=== PATIENT | female | born 1940 | race Caucasian/White ===

== ENCOUNTER 2017-02-15 13:26 | Emergency (ER) | payer OTHER ==
[~2017-02-15] VITALS: Ht 175.3 cm; Wt 69.7 kg
[~2017-02-15 13:26] MED LIST: GABA300C10 PO; GLIM4TAB2 PO; METH750T87 PO; OMEP-110 PO; OXYC-302 PO; will bring list
[2017-02-15 13:28] VITALS: BP 137/83
[2017-02-15] MEDS ORDERED: FAMOTIDINE 20 MG TABLET ONE (14:20)
[2017-02-15] MEDS ORDERED: DIPHENHYDRAMINE 25 MG CAPSULE ONE (14:20)
[2017-02-15] MEDS ORDERED: FAMOTIDINE 20 MG TABLET PO ONE (14:30)
[2017-02-15] MEDS ORDERED: DIPHENHYDRAMINE 25 MG CAPSULE PO ONE (14:30)
== END 2017-02-15 14:31 | disposition home or self-care (01) ==
LOC: ED 14:25
DX: B35.0 Tinea barbae and tinea capitis (principal); B35.4 Tinea corporis; E11.9 Type 2 diabetes mellitus without complications
CPT/HCPCS: 99283; Q0163

== ENCOUNTER 2018-10-05 05:19 | Observation (INO) | payer MEDICARE, OTHER ==
[~2018-10-05] VITALS: Ht 149.9 cm; Wt 65.0 kg
[~2018-10-05 05:19] MED LIST changes: +AMOX1TAB64 PO; +INSU100I18 SQ-INSULIN; +INSU100I28 SQ-INSULIN
--- NOTE | 2018-10-05 05:58 | NUR ---
SUMMARY NOTE: PT. TO ED WITH FEVER X 1.5 DAYS. PT. DENIES ANY COMPLAINTS. PT. REPORTS "MY CALLED BECAUSE I WAS HOT". PT. DENIES COUGH, DYSUIRA, RECENT ILLNESS, OR ANY OTHER COMPLTAINTS. DOES REPORT WAS SEEN AT [facility] ABOUT 2 WEEKS AGO BECAUSE SHE WAS UNABLE TO VOID AND HAD A CATHETER IN PLACE. STATES HAS HAD NO PROBLEMS WITH URINATION SINCE THEN HOWEVER. PT. RECEIVED 1000MG TYLENOL AND 1L NS EN ROUTE. 2ND LITER INITIATED PER ORDER. PT. HAD VERY LARGE INCONTINENT BM ON ARRIVAL(SOLID STOOL); PT. WAS THOROUGHLY CLEANSED AND THEN A STRAIGHT CATH WAS COMPLETED PER MD ORDER. PT. TOLERATED WELL. SKIN PWD; NO WOUNDS. URINE SAMPLE WALKED TO LAB. TO BS AT THIS TIME. CONTINUOUS PULSE OX AND B/P MONITORS IN PLACE. PERIPHRIAL PULSES STRONG AND EQUAL. EKG WAS DONE ON ARRIVAL. PT. PROVIDED WITH WATER AFTER OK FROM MD. AWARE OF PLAN FOR LABS/BLOOD CULTURES/AND CHEST X-RAY. DENIES OTHER NEEDS. CALL LIGHT IN REACH. ALL SAFETY MEASURES OBSERVED.
[2018-10-05] MEDS ORDERED: SODIUM CHLORIDE 0.9% 1,000ML IVBOLUS ONE (06:00)
[2018-10-05] MEDS ORDERED: METF500T17 PO (06:11)
[2018-10-05] MEDS ORDERED: SITA25TA PO (06:11)
[2018-10-05 06:23] LABS: MICROSCOPIC INDICATED
[2018-10-05 06:25] LABS: CULTURE INDICATED? YES
[2018-10-05 06:29] LABS: BASOPHILS # (AUTO) 0.01 x10^3/uL (0-0.1); BASOPHILS % (AUTO) 0 % (0-1); EOSINOPHILS % (AUTO) 0 % (1-7); LYMPHOCYTES # (AUTO) 0.33 x10^3/uL (1-3.4); LYMPHOCYTES % (AUTO) 4 % (22-44); MD NO; MEAN CORPUSCULAR HEMOGLOBIN 31.3 pg (27.0-34.8); MEAN CORPUSCULAR HGB CONC 34.2 g/dL (32.4-35.8); MEAN CORPUSCULAR VOLUME 91.5 fL (80-100); MEAN PLATELET VOLUME 7.5 fL (7.4-10.4); MONOCYTES # (AUTO) 0.64 x10^3/uL (0.2-0.8); MONOCYTES % (AUTO) 7 % (2-9); NEUTROPHILS # (AUTO) 8.17 x10^3/uL (1.8-6.8); NEUTROPHILS % (AUTO) 89 % (42-75); PLATELET COUNT 310 x10^3/uL (130-400); RED BLOOD COUNT 3.13 x10^6/uL (3.82-5.3); RED CELL DISTRIBUTION WIDTH 12.9 % (9.6-15.2)
[2018-10-05 06:38] LABS: ALANINE AMINOTRANSFERASE 9 U/L (12-78); ALBUMIN 2.4 g/dL (3.4-5.0); ANION GAP 9 mmol/L (5-15); CALCIUM 7.3 mg/dL (8.5-10.1); CHLORIDE 107 mmol/L (98-107)
[2018-10-05 06:40] LABS: ALKALINE PHOSPHATASE 59 U/L (45-117); BILIRUBIN,TOTAL 0.6 mg/dL (0.2-1.0); TOTAL PROTEIN 6.1 g/dL (6.4-8.2)
--- NOTE | 2018-10-05 06:44 | NUR ---
PT. RESTING ON GURNEY WITH NORYN. VS UPDATED. TEMP MUCH IMPROVED. PT. DENIES NEEDS. REMAINS AT BS FOR SUPPORT. CALL LIGHT IN REACH.
[2018-10-05] MEDS ORDERED: CEFTRIAXONE PMX 1GM/50ML 50 ML ONE (06:52)
--- NOTE | 2018-10-05 06:57 | NUR ---
BS REPORT TO TIFFANI FLORES TO ASSUME PT. CARE. IV ABX INFUISNG PER MD ORDER. BLOOD CULTURES WERE DRAWN PRIOR.
[2018-10-05] MEDS ORDERED: CEFTRIAXONE PMX 1GM/50ML 50 ML IV ONE (07:00)
--- NOTE | 2018-10-05 07:05 | NUR ---
REPORT FROM TIFFANI STYLES. PT RESTING COMFORTABELY IN [facility].
[2018-10-05] MEDS ORDERED: POTASSIUM CHLORIDE 20 MEQ TAB.ER.PRT PO ONE (07:30)
[2018-10-05] MEDS ORDERED: MAGNESIUM SULFATE PMX 2GM/50ML 50 ML IV ONE (07:30)
--- NOTE | 2018-10-05 07:36 | NUR ---
Mandie parks in [facility] - 10/05/18 at 0758 by AJ U/S AT BEDSIDE.
--- NOTE | 2018-10-05 07:57 | NUR ---
Mandie parks in ED - 10/05/18 at 0758 by AJ IVF AND IV ABX STARTED. PT RESTING COMFORTABELY IN [facility].
--- NOTE | 2018-10-05 08:00 | NUR ---
PT RESTING IN [facility]. NAD NOTED AT THIS. BREATHING REGULAR AND UNLABORED. AWAITING ROOM ASSIGNMENT AT THIS TIME.
--- NOTE | 2018-10-05 09:03 | NUR ---
REPORT TO TIFFANI MACK. PT ALREADY TO FLOOR.
[2018-10-05 09:07] VITALS: BP 95/60
[2018-10-05 12:26] VITALS: BP 123/71
[2018-10-05] MEDS: INSULIN REGULAR 100 UNITS/ML, 3ML VIAL SQ-INSULIN SCH ×2 (13:53→16:00)
[2018-10-05] MEDS ORDERED: DOCUSATE 100 MG CAPSULE PO PRN (16:00)
[2018-10-05] MEDS: HEPARIN 5,000 UNITS/ML, 1ML SQ SCH (16:00)
[2018-10-05] MEDS ORDERED: LABETALOL 5MG/ML, 20ML IVPush PRN (16:00)
[2018-10-05] MEDS ORDERED: ONDANSETRON 2MG/ML, 2ML IVPush PRN (16:00)
[2018-10-05] MEDS ORDERED: hydrALAzine 20 MG/ML, 1ML IVPush PRN (16:00)
[2018-10-05] MEDS ORDERED: ONDANSETRON ODT 4 MG PO PRN (16:00)
[2018-10-05] MEDS ORDERED: BISACODYL 10 MG SUPP PR PRN (16:00)
[2018-10-05] MEDS ORDERED: [UNRECOGNIZED DRUG - OTHER] MC SCH (16:00)
[2018-10-05] MEDS ORDERED: LIDODERM 5% PATCH TD PRN (16:00)
[2018-10-05] MEDS ORDERED: POLYETHYLENE GLYCOL 17 GM PACKET PO PRN (16:00)
[2018-10-05] MEDS ORDERED: ZOLPIDEM 5MG TABLET PO PRN (16:00)
[2018-10-05] MEDS: INSULIN LISPRO 100 UNITS/ML, PEN SQ-INSULIN SCH ×2 (16:00→23:58)
[2018-10-05] MEDS: LACTATED RINGERS 1,000 ML IV SCH (16:11)
[2018-10-05] MEDS: ACETAMINOPHEN 325 MG TABLET PO PRN (16:13)
[2018-10-05 16:39] LABS: HEMOGLOBIN A1C 11.7 % (4.2-6.3)
[2018-10-05 17:06] LABS: FREE T4 (FREE THYROXINE) 1.55 ng/dL (0.76-1.46); THYROID STIMULATING HORMONE 0.192 mIU/L (0.358-3.740)
[2018-10-05 19:45] VITALS: BP 99/57
[2018-10-06] MEDS: HEPARIN 5,000 UNITS/ML, 1ML SQ SCH ×4 (00:01→20:35)
[2018-10-06 00:16] LABS: CULTURE INDICATED? YES; MICROSCOPIC INDICATED
[2018-10-06 01:37] VITALS: BP 106/54
[2018-10-06] MEDS: LACTATED RINGERS 1,000 ML IV SCH ×3 (01:59→20:37)
[2018-10-06] MEDS: ACETAMINOPHEN 325 MG TABLET PO PRN ×3 (01:59→20:31)
[2018-10-06 05:36] LABS: ANION GAP 7 mmol/L (5-15); CALCIUM 7.8 mg/dL (8.5-10.1); CHLORIDE 107 mmol/L (98-107)
[2018-10-06 05:37] LABS: BASOPHILS # (AUTO) 0.01 x10^3/uL (0-0.1); BASOPHILS % (AUTO) 0 % (0-1); EOSINOPHILS # (AUTO) 0.01 x10^3/uL (0-0.4); EOSINOPHILS % (AUTO) 0 % (1-7); LYMPHOCYTES % (AUTO) 16 % (22-44); MD NO; MEAN CORPUSCULAR HEMOGLOBIN 30.4 pg (27.0-34.8); MEAN CORPUSCULAR HGB CONC 33.3 g/dL (32.4-35.8); MEAN CORPUSCULAR VOLUME 91.4 fL (80-100); MEAN PLATELET VOLUME 8.1 fL (7.4-10.4); MONOCYTES # (AUTO) 1.02 x10^3/uL (0.2-0.8); MONOCYTES % (AUTO) 12 % (2-9); NEUTROPHILS # (AUTO) 6.04 x10^3/uL (1.8-6.8); NEUTROPHILS % (AUTO) 72 % (42-75); PLATELET COUNT 344 x10^3/uL (130-400); RED BLOOD COUNT 3.39 x10^6/uL (3.82-5.3); RED CELL DISTRIBUTION WIDTH 13.3 % (9.6-15.2)
[2018-10-06 05:41] LABS: CHOL/HDL RATIO 6.4; CHOLESTEROL, TOTAL 153 mg/dL (140-239); CREATININE 0.68 mg/dL (0.55-1.02); HDL CHOL % 16 % (28-40); HDL CHOLESTEROL (DIRECT) 24 mg/dL (40-60); LDL CHOLESTEROL,CALCULATED 100 mg/dL (54-169); LDL/HDL RATIO 4.2 (0.5-3.0); TRIGLYCERIDES 146 mg/dL (50-200); VLDL CHOLESTEROL 29 mg/dL (0-25)
[2018-10-06] MEDS: INSULIN LISPRO 100 UNITS/ML, PEN SQ-INSULIN SCH ×4 (07:00→20:34)
[2018-10-06 07:52] VITALS: BP 111/64
[2018-10-06] MEDS: PANTOPROZOLE 40MG TABLET PO SCH (09:34)
[2018-10-06 13:47] VITALS: BP 96/59
[2018-10-06] MEDS ORDERED: CEFTRIAXONE PMX 2GM/50ML 50 ML IV SCH (19:30)
[2018-10-06 19:52] VITALS: BP 143/86
[2018-10-07 02:13] VITALS: BP 123/69
[2018-10-07] MEDS ORDERED: DIPHENHYDRAMINE 25 MG CAPSULE PO ONE ×2 (02:30→10:00)
[2018-10-07] MEDS: INSULIN LISPRO 100 UNITS/ML, PEN SQ-INSULIN SCH ×2 (07:00→12:38)
[2018-10-07] MEDS: LACTATED RINGERS 1,000 ML IV SCH (08:00)
[2018-10-07] MEDS: HEPARIN 5,000 UNITS/ML, 1ML SQ SCH (08:00)
[2018-10-07] MEDS: PANTOPROZOLE 40MG TABLET PO SCH (08:29)
[2018-10-07] MEDS ORDERED: LEVOFLOXACIN 500 MG TABLET PO SCH (09:00)
[2018-10-07 09:51] VITALS: BP 129/73
[2018-10-07] MEDS ORDERED: DIPHENHYDRAMINE 25 MG CAPSULE ONE (10:05)
[2018-10-07] MEDS ORDERED: SULFAMETH./TRIMETHOPRIM DS 800MG/160MG TABLET PO SCH (10:30)
[2018-10-07] MEDS ORDERED: SULF-169 PO (11:57)
[2018-10-07] MEDS ORDERED: POTA20TA6 PO (13:50)
== END 2018-10-07 15:36 | disposition home or self-care (01) ==
LOC: ED 06:59 → EDIP 07:23 → INTOOBSV 07:23 → 3NE 08:48 → DCLOUNGE 10-07 15:15
PROVIDERS: ADMIT Hospitalist; ATTEND Hospitalist
DX: N39.0 Urinary tract infection, site not specified (principal); E11.65 Type 2 diabetes mellitus with hyperglycemia; E43 Unspecified severe protein-calorie malnutrition; E78.5 Hyperlipidemia, unspecified; E83.42 Hypomagnesemia; E83.51 Hypocalcemia; E87.6 Hypokalemia; Z86.718 Personal history of other venous thrombosis and embolism; Z90.710 Acquired absence of both cervix and uterus; Z88.0 Allergy status to penicillin; Z88.5 Allergy status to narcotic agent; Z88.8 Allergy status to other drugs, medicaments and biological substances; Z68.28 Body mass index [BMI] 28.0-28.9, adult; Z79.84 Long term (current) use of oral hypoglycemic drugs
CPT/HCPCS: 36415; 71045; 80048; 80053; 80061; 81001; 82962; 83036; 83605; 83735; 84439; 84443; 85025; 87040; 87077; 87086; 87186; 93005; 96361; 96365; 96366; 96372; 97163; 99285; G0378; J0696; J1644; J1815; J7030; J7120; Q0163; 96374

== ENCOUNTER 2019-01-16 20:18 | Inpatient (IN) | payer MEDICARE ==
[~2019-01-16] VITALS: Ht 142.2 cm; Wt 59.6 kg
[~2019-01-16 20:18] MED LIST changes: +METF500T17 PO; +POTA20TA6 PO; +SITA25TA PO; +SULF-169 PO
--- NOTE | 2019-01-16 20:45 | NUR ---
PT PRESENTING TO ER FOR SOB SINEC APPROX 0230 THIS AM, NORMALLY HAS TO SLEEP ELEVATED AT NIGHT BUT DIDNT LAST NIGHT. BILATER LEG SWELLING NOTED. YEARS AGO HAS SENT PLACED IN LEG FOR CLOT, NOT CURRENTLY ON BLOOD THINNER. ROCAEL, PT ABLE TO SPEAK IN FULL SENTENCES. CONNECTED TO ALL MONITORING, VSS, RHYTHM IRREGULAR. FAMILY AT BEDSIDE. CALL LIGHT WITHIN REACH. ORDERS RECEIVED. LAB AT BEDSIDE.
[2019-01-16] MEDS ORDERED: ASPIRIN 81 MG TABLET CHEW ONE (20:51)
[2019-01-16 20:53] LABS: BASOPHILS # (AUTO) 0.02 x10^3/uL (0-0.1); BASOPHILS % (AUTO) 0 % (0-1); EOSINOPHILS # (AUTO) 0.01 x10^3/uL (0-0.4); EOSINOPHILS % (AUTO) 0 % (1-7); LYMPHOCYTES # (AUTO) 1.64 x10^3/uL (1-3.4); LYMPHOCYTES % (AUTO) 25 % (22-44); MD NO; MEAN CORPUSCULAR HEMOGLOBIN 29.8 pg (27.0-34.8); MEAN CORPUSCULAR HGB CONC 33.1 g/dL (32.4-35.8); MEAN PLATELET VOLUME 7.2 fL (7.4-10.4); MONOCYTES # (AUTO) 0.76 x10^3/uL (0.2-0.8); MONOCYTES % (AUTO) 12 % (2-9); NEUTROPHILS # (AUTO) 4.06 x10^3/uL (1.8-6.8); NEUTROPHILS % (AUTO) 63 % (42-75); PLATELET COUNT 670 x10^3/uL (130-400); RED BLOOD COUNT 3.86 x10^6/uL (3.82-5.3); RED CELL DISTRIBUTION WIDTH 15.9 % (9.6-15.2)
--- NOTE | 2019-01-16 20:53 | NUR ---
PT MEDICATED. RAD AT BEDSIDE
[2019-01-16] MEDS ORDERED: ASPIRIN 81 MG TABLET CHEW PO ONE (21:00)
[2019-01-16 21:04] LABS: ALANINE AMINOTRANSFERASE 11 U/L (12-78); ALBUMIN 2.9 g/dL (3.4-5.0); ANION GAP 8 mmol/L (5-15); CALCIUM 8.2 mg/dL (8.5-10.1); CHLORIDE 111 mmol/L (98-107); CREATININE 1.34 mg/dL (0.55-1.02)
[2019-01-16 21:08] LABS: ALKALINE PHOSPHATASE 81 U/L (45-117); BILIRUBIN,TOTAL 0.2 mg/dL (0.2-1.0); TOTAL PROTEIN 7.9 g/dL (6.4-8.2); TROPONIN I < 0.015 ng/mL (0.000-0.045)
--- NOTE | 2019-01-16 21:19 | NUR ---
ALL RESULTS BACK AT THIS TIME, CHART UP FOR RECHECK
--- NOTE | 2019-01-16 21:36 | NUR ---
PT RESTING COMFORTABLY IN ROOM WITH FAMILY AT BEDSIDE. NADN, NO REQUESTS OR COMPLAINTS AT THIS TIME. VSS. AWAITING RECHECK AND DISPO.
[2019-01-16] MEDS ORDERED: ASPI-496 PO (21:38)
--- NOTE | 2019-01-16 21:47 | NUR ---
MD TO BEDSIDE TO UPDATE PT AND FAMILY ON POC. ADDITIONAL ORDERS RECEIVED AT THIS TIME FOR CT. TO BE ADMIT AFTER
--- NOTE | 2019-01-16 22:00 | NUR ---
PT UP TO RESTROOM WITH 1 PERSON ASSIST AND WALKER. IV PLACED FOR CT AND PENDING ADMIT. ADDITIONAL BLANKET PROVIDED FOR COMFORT. FAMILY AT BEDSIDE. CALL LIGHT WITHIN REACH
--- NOTE | 2019-01-16 22:18 | NUR ---
PT TAKEN TO CT
[2019-01-16] MEDS ORDERED: OMNIPAQUE 350 MG/ML, 100ML BOTTLE ONE (22:25)
--- NOTE | 2019-01-16 22:39 | NUR ---
ALL RESULTS BACK AT THIS TIME, CHART UP FOR RECHECK. PT SLEEPING COMFORTABLY IN BED WITH VSS. NADN. CALL LIGHT WITHIN REACH
--- NOTE | 2019-01-16 23:01 | NUR ---
PT UP TO REST ROOM WITH WALKER. DENTURES PLACED IN DENTURE CUP AND LABELED WITH PT LABEL
--- NOTE | 2019-01-16 23:08 | NUR ---
RECEIVED REPORT AND ASSUMED PT CARE.
--- NOTE | 2019-01-16 23:11 | NUR ---
REPORT GIVEN TO KELLY NIXON
--- NOTE | 2019-01-16 23:25 | NUR ---
GAVE REPORT TO RICA IN CARDIAC AND AWAITING TRANSPORT.
[2019-01-17] MEDS ORDERED: SODIUM CHLORIDE 0.9% 1,000 ML IV SCH (00:42)
[2019-01-17] MEDS ORDERED: DOCUSATE 100 MG CAPSULE PO PRN (01:00)
[2019-01-17] MEDS ORDERED: LIDODERM 5% PATCH TD PRN (01:00)
[2019-01-17] MEDS ORDERED: ONDANSETRON ODT 4 MG PO PRN (01:00)
[2019-01-17] MEDS: HEPARIN 5,000 UNITS/ML, 1ML SQ SCH ×3 (01:03→17:17)
[2019-01-17 01:27] VITALS: BP 110/70
[2019-01-17 02:00] VITALS: BP 110/90
[2019-01-17 03:25] LABS: TROPONIN I < 0.015 ng/mL (0.000-0.045)
[2019-01-17 06:43] VITALS: BP 122/77
[2019-01-17 09:11] LABS: BASOPHILS # (AUTO) 0.02 x10^3/uL (0-0.1); BASOPHILS % (AUTO) 0 % (0-1); EOSINOPHILS % (AUTO) 0 % (1-7); LYMPHOCYTES # (AUTO) 1.03 x10^3/uL (1-3.4); LYMPHOCYTES % (AUTO) 9 % (22-44); MD NO; MEAN CORPUSCULAR HEMOGLOBIN 29.3 pg (27.0-34.8); MEAN CORPUSCULAR HGB CONC 32.5 g/dL (32.4-35.8); MEAN CORPUSCULAR VOLUME 89.9 fL (80-100); MONOCYTES # (AUTO) 0.76 x10^3/uL (0.2-0.8); MONOCYTES % (AUTO) 7 % (2-9); NEUTROPHILS # (AUTO) 9.63 x10^3/uL (1.8-6.8); NEUTROPHILS % (AUTO) 84 % (42-75); PLATELET COUNT 685 x10^3/uL (130-400); RED BLOOD COUNT 3.96 x10^6/uL (3.82-5.3); RED CELL DISTRIBUTION WIDTH 15.1 % (9.6-15.2)
[2019-01-17 09:19] LABS: ANION GAP 9 mmol/L (5-15); CALCIUM 7.9 mg/dL (8.5-10.1); CHLORIDE 108 mmol/L (98-107); CREATININE 1.64 mg/dL (0.55-1.02)
[2019-01-17 09:23] LABS: TROPONIN I < 0.015 ng/mL (0.000-0.045)
[2019-01-17 12:20] LABS: HEMOGLOBIN A1C 7.2 % (4.2-6.3)
[2019-01-17 14:16] VITALS: BP 115/72
[2019-01-17 15:24] LABS: MICROSCOPIC INDICATED
[2019-01-17 15:26] LABS: CULTURE INDICATED? YES
[2019-01-17] MEDS ORDERED: MEROPENEM 500 MG in SODIUM CHLORIDE 0.9% 100 ML IV SCH (15:30)
[2019-01-17] MEDS: SODIUM CHLORIDE 0.9% 1,000 ML IV SCH ×2 (15:52→20:29)
[2019-01-17] MEDS: ACETAMINOPHEN 325 MG TABLET PO PRN (15:55)
[2019-01-17 15:57] VITALS: BP 114/68
[2019-01-17] MEDS: MEROPENEM 500 MG in SODIUM CHLORIDE 0.9% 100 ML IV SCH (16:02)
[2019-01-17] MEDS ORDERED: LINA5TAB PO (19:35)
[2019-01-17] MEDS ORDERED: RAMI2.5C2 PO (19:35)
[2019-01-17] MEDS ORDERED: ATOR20TA86 PO (19:35)
[2019-01-17] MEDS ORDERED: CARV6.25 PO (19:35)
[2019-01-17 19:41] VITALS: BP 96/59
[2019-01-17 20:31] LABS: CREATININE,URINE RANDOM 24.5 mg/dL
[2019-01-18 00:57] VITALS: BP 100/63
[2019-01-18] MEDS: HEPARIN 5,000 UNITS/ML, 1ML SQ SCH ×4 (01:50→23:12)
[2019-01-18] MEDS: MEROPENEM 500 MG in SODIUM CHLORIDE 0.9% 100 ML IV SCH (03:38)
[2019-01-18 05:03] LABS: BASOPHILS # (AUTO) 0.04 x10^3/uL (0-0.1); BASOPHILS % (AUTO) 0 % (0-1); EOSINOPHILS # (AUTO) 0.07 x10^3/uL (0-0.4); EOSINOPHILS % (AUTO) 1 % (1-7); LYMPHOCYTES # (AUTO) 1.66 x10^3/uL (1-3.4); LYMPHOCYTES % (AUTO) 12 % (22-44); MD NO; MEAN CORPUSCULAR HEMOGLOBIN 29.7 pg (27.0-34.8); MEAN CORPUSCULAR HGB CONC 32.8 g/dL (32.4-35.8); MEAN CORPUSCULAR VOLUME 90.7 fL (80-100); MEAN PLATELET VOLUME 7.4 fL (7.4-10.4); MONOCYTES # (AUTO) 1.21 x10^3/uL (0.2-0.8); MONOCYTES % (AUTO) 8 % (2-9); NEUTROPHILS # (AUTO) 11.42 x10^3/uL (1.8-6.8); NEUTROPHILS % (AUTO) 79 % (42-75); PLATELET COUNT 578 x10^3/uL (130-400); RED BLOOD COUNT 3.61 x10^6/uL (3.82-5.3); RED CELL DISTRIBUTION WIDTH 15.4 % (9.6-15.2)
[2019-01-18 05:09] LABS: ANION GAP 7 mmol/L (5-15); CALCIUM 7.4 mg/dL (8.5-10.1); CHLORIDE 110 mmol/L (98-107); CREATININE 1.03 mg/dL (0.55-1.02)
[2019-01-18 05:55] VITALS: BP 110/69
[2019-01-18] MEDS: ACETAMINOPHEN 325 MG TABLET PO PRN ×2 (05:58→23:12)
[2019-01-18 06:42] VITALS: BP 99/61
[2019-01-18] MEDS: SODIUM CHLORIDE 0.9% 1,000 ML IV SCH ×2 (09:54→23:11)
[2019-01-18 12:29] LABS: HCT (SEDRATE) 34.3 % (34.6-47.8)
[2019-01-18 12:30] VITALS: BP 103/61
[2019-01-18] MEDS: MEROPENEM 1 GM in SODIUM CHLORIDE 0.9% 100 ML IV SCH (15:28)
[2019-01-18 18:50] VITALS: BP 102/64
[2019-01-18] MEDS: TEMAZEPAM 15 MG CAPSULE PO PRN (23:11)
[2019-01-19 01:14] VITALS: BP 106/69
[2019-01-19] MEDS: MEROPENEM 1 GM in SODIUM CHLORIDE 0.9% 100 ML IV SCH ×2 (03:59→16:30)
[2019-01-19 05:41] LABS: BASOPHILS # (AUTO) 0.03 x10^3/uL (0-0.1); BASOPHILS % (AUTO) 0 % (0-1); EOSINOPHILS # (AUTO) 0.05 x10^3/uL (0-0.4); EOSINOPHILS % (AUTO) 1 % (1-7); LYMPHOCYTES # (AUTO) 1.85 x10^3/uL (1-3.4); LYMPHOCYTES % (AUTO) 21 % (22-44); MD NO; MEAN CORPUSCULAR HEMOGLOBIN 29.1 pg (27.0-34.8); MEAN CORPUSCULAR HGB CONC 32.4 g/dL (32.4-35.8); MEAN PLATELET VOLUME 7.3 fL (7.4-10.4); MONOCYTES # (AUTO) 0.72 x10^3/uL (0.2-0.8); MONOCYTES % (AUTO) 8 % (2-9); NEUTROPHILS # (AUTO) 6.36 x10^3/uL (1.8-6.8); NEUTROPHILS % (AUTO) 71 % (42-75); PLATELET COUNT 578 x10^3/uL (130-400); RED BLOOD COUNT 3.55 x10^6/uL (3.82-5.3); RED CELL DISTRIBUTION WIDTH 15.4 % (9.6-15.2)
[2019-01-19 05:56] LABS: CHLORIDE 111 mmol/L (98-107)
[2019-01-19 06:09] LABS: ANION GAP 8 mmol/L (5-15); CALCIUM 7.1 mg/dL (8.5-10.1)
[2019-01-19 06:50] VITALS: BP 100/66
[2019-01-19] MEDS ORDERED: POTASSIUM CHLORIDE 20 MEQ TAB.ER.PRT PO ONE (07:30)
[2019-01-19] MEDS: HEPARIN 5,000 UNITS/ML, 1ML SQ SCH ×2 (08:00→17:07)
[2019-01-19 10:45] VITALS: BP 124/70
[2019-01-19] MEDS: INSULIN LISPRO 100 UNITS/ML, PEN SQ-INSULIN SCH ×3 (11:40→21:13)
[2019-01-19 12:10] VITALS: BP 118/78
[2019-01-19 19:01] VITALS: BP 125/73
[2019-01-19] MEDS: ACETAMINOPHEN 325 MG TABLET PO PRN (21:17)
[2019-01-19] MEDS: TEMAZEPAM 15 MG CAPSULE PO PRN (21:17)
[2019-01-19 21:49] LABS: MICROSCOPIC INDICATED
[2019-01-20] MEDS: HEPARIN 5,000 UNITS/ML, 1ML SQ SCH ×2 (01:00→09:54)
[2019-01-20 01:20] VITALS: BP 109/67
[2019-01-20] MEDS: MEROPENEM 1 GM in SODIUM CHLORIDE 0.9% 100 ML IV SCH ×2 (03:49→16:34)
[2019-01-20 04:53] LABS: HCT (SEDRATE) 32.8 % (34.6-47.8)
[2019-01-20 05:06] LABS: CALCIUM 7.2 mg/dL (8.5-10.1); CHLORIDE 112 mmol/L (98-107)
[2019-01-20 05:17] LABS: ANION GAP 8 mmol/L (5-15); CREATININE 0.67 mg/dL (0.55-1.02)
[2019-01-20] MEDS: INSULIN LISPRO 100 UNITS/ML, PEN SQ-INSULIN SCH ×3 (07:00→16:00)
[2019-01-20 08:02] VITALS: BP 118/79
[2019-01-20] MEDS ORDERED: LACT1TAB13 PO (13:01)
[2019-01-20] MEDS ORDERED: ONDA4TAB13 PO (13:01)
[2019-01-20] MEDS ORDERED: CIPR500T87 PO (13:01)
[2019-01-20] MEDS ORDERED: DOCU-131 PO (13:01)
[2019-01-20] MEDS ORDERED: TAMS-11 PO (13:01)
[2019-01-20] MEDS ORDERED: LIDO700A20 TD (13:01)
[2019-01-20] MEDS ORDERED: SIMV10TA PO (13:05)
[2019-01-20 14:18] VITALS: BP 108/71
== END 2019-01-20 18:15 | disposition home or self-care (01) | DRG 871 ==
LOC: ED 21:01 → EDIP 22:59 → 5SO 23:42 → 3NW 01-19 10:39
PROVIDERS: ADMIT Internal Medicine; ATTEND Internal Medicine
PROC: 0T9B70Z Drainage of Bladder with Drainage Device, Via Natural or Artificial Opening (ICD-10-PCS; principal; 2019-01-19)
DX: A41.9 Sepsis, unspecified organism (principal); N17.0 Acute kidney failure with tubular necrosis; I31.3 Pericardial effusion (noninflammatory); N13.6 Pyonephrosis; I50.32 Chronic diastolic (congestive) heart failure; E87.6 Hypokalemia; E11.40 Type 2 diabetes mellitus with diabetic neuropathy, unspecified; E11.51 Type 2 diabetes mellitus with diabetic peripheral angiopathy without gangrene; E78.00 Pure hypercholesterolemia, unspecified; E78.5 Hyperlipidemia, unspecified; K21.9 Gastro-esophageal reflux disease without esophagitis; Z86.718 Personal history of other venous thrombosis and embolism; Z90.711 Acquired absence of uterus with remaining cervical stump; Z88.0 Allergy status to penicillin; Z88.5 Allergy status to narcotic agent
CPT/HCPCS: 36415; 71045; 71275; 74176; 76770; 80048; 80053; 81001; 82436; 82570; 82962; 83036; 83605; 83880; 84133; 84145; 84156; 84300; 84443; 84484; 85025; 85651; 86140; 87040; 87086; 93005; 93306; 93970; 99285; G0378; J1644; J2185; Q9967; J1815; J7030

== ENCOUNTER → 2019-05-04 | Outpatient (CLI) | payer MEDICAID, MEDICARE ==
[~2019-05-04] MED LIST changes: +ASPI-496 PO; +ATOR20TA86 PO; +CARV6.25 PO; +CIPR500T87 PO; +DOCU-131 PO; -GLIM4TAB2 PO; +GLIM4TAB4 PO; +LACT1TAB13 PO; +LIDO700A20 TD; +LINA5TAB PO; +ONDA4TAB13 PO; +RAMI2.5C2 PO; +SIMV10TA PO; +TAMS-11 PO
== END | disposition home or self-care (01) ==
LOC: CFH 15:39
PROVIDERS: ATTEND Nurse Practitioner Family
DX: G31.9 Degenerative disease of nervous system, unspecified (principal); E11.9 Type 2 diabetes mellitus without complications; Z87.891 Personal history of nicotine dependence
CPT/HCPCS: 70551

== ENCOUNTER → 2020-03-30 | Outpatient (CLI) | payer BC, MEDICARE ==
[~2020-03-30] MED LIST changes: -GLIM4TAB4 PO; +GLIM4TAB8 PO; +OXYB-39 PO
== END | disposition home or self-care (01) ==
LOC: CFH 15:21
PROVIDERS: ATTEND Physician Assistant
DX: N31.9 Neuromuscular dysfunction of bladder, unspecified (principal)
CPT/HCPCS: 76770

== ENCOUNTER → 2020-06-01 | Outpatient (CLI) | payer MEDICARE | END | disposition home or self-care (01) | LOC: STAR 11:05 | PROVIDERS: ATTEND Anesthesiology | DX: Z20.828 Contact with and (suspected) exposure to other viral communicable diseases (principal) | CPT/HCPCS: 87635 ==

== ENCOUNTER 2020-06-05 09:40 | Day surgery (SDC) | payer MEDICARE ==
[~2020-06-05] VITALS: Ht 142.2 cm; Wt 59.6 kg
[~2020-06-05 09:40] MED LIST changes: +FENTANYL PF 250 MCG/5ML ONE
[2020-06-05] MEDS ORDERED: BUPIVACAINE/PF 0.5% ONE (10:09)
[2020-06-05] MEDS ORDERED: EPINEPHRINE 1 MG/ML, 1ML ONE (10:10)
[2020-06-05] MEDS ORDERED: CHLORHEXIDINE 15 ML UDC ONE (10:27)
[2020-06-05] MEDS ORDERED: LABETALOL 5MG/ML, 20ML IV PRN (10:30)
[2020-06-05] MEDS ORDERED: HYDROmorphone 1 MG/ML, 1ML INJ IVPush PRN (10:30)
[2020-06-05] MEDS ORDERED: hydrALAzine 20 MG/ML, 1ML IV PRN (10:30)
[2020-06-05] MEDS ORDERED: HALOPERIDOL 5 MG/ML IV PRN (10:30)
[2020-06-05] MEDS ORDERED: MEPERIDINE/PF 25MG/0.5ML IVPush PRN (10:30)
[2020-06-05] MEDS ORDERED: HYDROcodone/APAP 7.5-325MG/15ML UDC PO PRN (10:30)
[2020-06-05] MEDS ORDERED: LACTATED RINGERS 1,000 ML IV SCH (10:30)
[2020-06-05] MEDS ORDERED: PROMETHAZINE 25 MG/ML, 1ML IVPush PRN (10:30)
[2020-06-05] MEDS ORDERED: CHLORHEXIDINE 15 ML UDC MM ONE (10:30)
[2020-06-05] MEDS ORDERED: DIPHENHYDRAMINE 50 MG/ML, 1ML IVPush PRN (10:30)
[2020-06-05] MEDS ORDERED: ATOR20TA37 PO (10:34)
[2020-06-05 10:37] VITALS: BP 108/70
[2020-06-05] MEDS ORDERED: DEXAMETHASONE 4 MG/ML, 1ML ONE (11:00)
[2020-06-05] MEDS ORDERED: BUPIVACAINE/PF-EPI 0.5% 1:200K INFIL ONE (11:18)
[2020-06-05] MEDS ORDERED: ROCURONIUM 10MG/ML,5ML ONE (11:43)
[2020-06-05] MEDS ORDERED: CEFAZOLIN 1,000 MG ONE (11:43)
[2020-06-05] MEDS ORDERED: ONDANSETRON 2MG/ML, 2ML ONE (11:43)
[2020-06-05] MEDS ORDERED: SUGAMMADEX 200 MG/2 ML IVPush ONE (11:43)
[2020-06-05] MEDS ORDERED: SUCCINYLCHOLINE 20 MG/ML, 10ML ONE (11:43)
[2020-06-05] MEDS ORDERED: PROPOFOL 10 MG/ML, 20ML ONE (11:43)
[2020-06-05] MEDS ORDERED: GLYCOPYRROLATE 0.2MG/1ML, 5ML ONE (11:43)
[2020-06-05] MEDS ORDERED: NEOSTIGMINE 1 MG/ML, 10ML ONE (11:43)
[2020-06-05] MEDS ORDERED: OXYcodone 5 MG/5 ML ORAL.SOL UDC PO PRN (12:00)
[2020-06-05] MEDS ORDERED: PROMETHAZINE 25 MG/ML, 1ML ONE (12:19)
[2020-06-05] MEDS ORDERED: FENTANYL PF 100 MCG/2ML ONE (12:20)
[2020-06-05] MEDS ORDERED: HYDROcodone/APAP 7.5-325MG/15ML UDC ONE (12:20)
[2020-06-05] MEDS: FENTANYL PF 100 MCG/2ML IV PRN ×2 (12:26→12:44)
== END 2020-06-05 14:00 | disposition home or self-care (01) ==
LOC: OUT 09:40
PROVIDERS: ATTEND Surgery
DX: K40.90 Unilateral inguinal hernia, without obstruction or gangrene, not specified as recurrent (principal); E11.9 Type 2 diabetes mellitus without complications; E78.5 Hyperlipidemia, unspecified; Z79.84 Long term (current) use of oral hypoglycemic drugs; Z79.899 Other long term (current) drug therapy; Z88.0 Allergy status to penicillin; Z88.5 Allergy status to narcotic agent; Z88.8 Allergy status to other drugs, medicaments and biological substances; Z83.3 Family history of diabetes mellitus
CPT/HCPCS: 49650; 82962; 93005; C1781; J0171; J0330; J0690; J1100; J2405; J2550; J2704; J3010; J2710

== ENCOUNTER → 2020-10-03 | Outpatient (CLI) | payer MEDICARE ==
[~2020-10-03] MED LIST changes: +ATOR20TA37 PO; -FENTANYL PF 250 MCG/5ML ONE; -OXYC-302 PO; +OXYC1TAB14 PO; -RAMI2.5C2 PO; +RAMI2.5C49 PO
== END | disposition home or self-care (01) ==
LOC: CFH 16:36
PROVIDERS: ATTEND Nurse Practitioner Family
DX: M48.061 Spinal stenosis, lumbar region without neurogenic claudication (principal); M43.26 Fusion of spine, lumbar region; R26.81 Unsteadiness on feet
CPT/HCPCS: 72148

== ENCOUNTER 2020-12-17 08:48 | Emergency (ER) | payer MEDICARE ==
[~2020-12-17] VITALS: Ht 142.2 cm; Wt 63.0 kg
[~2020-12-17 08:48] MED LIST changes: +OXYC1TAB12 PO; -OXYC1TAB14 PO; +POTA-143 PO; -POTA20TA6 PO
--- NOTE | 2020-12-17 09:44 | NUR ---
gem carver note: Pt to room from lobby.
--- NOTE | 2020-12-17 09:47 | NUR ---
Mandie parks in [facility] - 12/17/20 at 0947 by RAE welding machine operator arc: Pt ambulatory to room from [facility] at this time.
[2020-12-17] MEDS ORDERED: HYDROcodone/APAP 5/325 TABLET ONE (10:20)
[2020-12-17] MEDS ORDERED: HYDROcodone/APAP 5/325 TABLET PO ONE (10:30)
[2020-12-17 12:07] VITALS: BP 132/76
== END 2020-12-17 12:13 | disposition home or self-care (01) ==
LOC: ED 10:04
DX: M79.642 Pain in left hand (principal); M79.641 Pain in right hand
CPT/HCPCS: 99283